=== PATIENT | male | born 1965 | race African-American/Black ===

== ENCOUNTER 2020-12-05 19:43 | Emergency (ER) | payer OTHER ==
[2020-12-05 19:59] VITALS: TEMP 98.4; BMI 40.6
[2020-12-05 20:39] VITALS: BP 131/75; PULSE 90
[2020-12-05] MEDS ORDERED: ACETAMINOPHEN 500 MG TABLET (FP) PO ONE (21:22)
[2020-12-05] MEDS ORDERED: ACETAMINOPHEN 325 MG TABLET (FP) ONE (21:32)
[2020-12-05 22:07] LABS: BASO % 0.7 % (0-2.0); EOS % 1.5 % (0-4.5); HEMATOCRIT 39.8 % (35.4-49); HEMOGLOBIN 13.4 GM/dL (11.7-16.9); LYMPH % 22.4 % (8-40); MCH 27.8 pg (25.7-33.7); MCHC 33.7 g/dl (32.0-35.9); MEAN CELL VOLUME 82.5 fl (80-96); MEAN PLT VOLUME 7.7 fl (7.5-11.1); MONO % 7.9 % (3.8-10.2); NEUT % 67.5 % (42.8-82.8); PLATELET COUNT 337 10^3/uL (134-434); RBC 4.83 M/mm3 (4.00-5.60); RDW 14.1 % (11.9-15.9); WHITE BLOOD COUNT 9.9 K/mm3 (4.0-10.0)
[2020-12-05 22:26] LABS: ALBUMIN 3.6 g/dl (3.4-5.0); BLOOD UREA NITROGEN 12.5 mg/dL (7-18)
[2020-12-05 22:29] LABS: CREATININE 0.9 mg/dL (0.55-1.3)
[2020-12-05 22:31] LABS: TOT PROT 7.7 g/dl (6.4-8.2)
[2020-12-05 22:36] LABS: BILIRUBIN,TOTAL 0.3 mg/dL (0.2-1)
[2020-12-05] MEDS ORDERED: CLINDAMYCIN 600MG PREMIX IVPB 600 MG/50 ML BAG IVPB ONE ×2 (22:56→23:00)
[2020-12-05] MEDS ORDERED: IBUPROFEN 600 MG TABLET (FP) PO ONE ×2 (23:11→23:14)
== END 2020-12-05 23:32 | disposition home or self-care (01) ==
LOC: JER 19:43
DX: L03.116 Cellulitis of left lower limb (principal)
CPT/HCPCS: 36415; 73630-TC-LT; 80053; 85025; 87040; 99284-25

== ENCOUNTER 2020-12-24 10:29 | Emergency (ER) | payer OTHER ==
[2020-12-24 10:56] VITALS: BP 155/85; PULSE 96; TEMP 97.8; BMI 41.3
[2020-12-24] MEDS ORDERED: ACETAMINOPHEN 500 MG TABLET (FP) PO ONE (11:03)
[2020-12-24] MEDS ORDERED: ACETAMINOPHEN 500 MG TABLET (FP) ONE (11:17)
== END 2020-12-24 11:56 | disposition home or self-care (01) ==
LOC: JER 10:29
DX: M79.675 Pain in left toe(s) (principal)
CPT/HCPCS: 99283-25

== ENCOUNTER 2021-09-06 18:17 | Emergency (ER) | payer OTHER ==
[2021-09-06 18:25] VITALS: BP 170/90; PULSE 78; TEMP 98.6; BMI 41.3
[2021-09-06] MEDS ORDERED: SILVER SULFADIAZINE 1% TOP CREAM 50 GM JAR TP ONE ×2 (19:43→19:49)
[2021-09-06] MEDS ORDERED: LORATADINE 10 MG TABLET PO ONE (19:45)
[2021-09-06] MEDS ORDERED: LORATADINE 10 MG TABLET ONE (19:49)
[2021-09-06] MEDS ORDERED: DEXAMETHASONE SOD PHOSPHATE 10 MG/1 ML VIAL ONE (19:50)
[2021-09-06] MEDS ORDERED: DEXAMETHASONE SOD PHOSPHATE 10 MG/1 ML VIAL IM ONE (19:50)
== END 2021-09-06 20:45 | disposition home or self-care (01) ==
LOC: JERFT 18:17 → JER 18:17 → JERFT 20:45
PROC: 3E023GC Introduction of Other Therapeutic Substance into Muscle, Percutaneous Approach (ICD-10-PCS; principal; 2021-09-06)
DX: L23.3 Allergic contact dermatitis due to drugs in contact with skin (principal)
CPT/HCPCS: 99284-25; J1100

== ENCOUNTER 2023-06-21 18:20 | Emergency (ER) | payer OTHER ==
[2023-06-21 18:29] VITALS: BP 160/82; PULSE 89; RESP 18; TEMP 97; BMI 41.3
[2023-06-21] MEDS ORDERED: KETOROLAC TROMETHAMINE 30 MG/1 ML VIAL ONE (19:31)
[2023-06-21] MEDS: SODIUM CHLORIDE 0.9% 500 ML INFUS.BAG IV ONE (19:54)
[2023-06-21] MEDS: KETOROLAC TROMETHAMINE 30 MG/1 ML VIAL IVPUSH ONE (19:54)
[2023-06-21 20:00] LABS: BASO % 0.8 % (0-2.0); EOS % 4.6 % (0-4.5); HEMATOCRIT 41.6 % (35.4-49); HEMOGLOBIN 13.6 GM/dL (11.7-16.9); MCH 27.5 pg (25.7-33.7); MCHC 32.7 g/dl (32.0-35.9); MEAN CELL VOLUME 84.1 fl (80-96); MEAN PLT VOLUME 7.7 fl (7.5-11.1); MONO % 9.6 % (3.8-10.2); PLATELET COUNT 411 10^3/uL (134-434); RBC 4.94 M/mm3 (4.00-5.60); RDW 15.9 % (11.9-15.9); WHITE BLOOD COUNT 8.1 K/mm3 (4.0-10.0)
[2023-06-21 20:01] LABS: EPI CELLS 2 /uL (0-25.1); HYALINE CASTS 0 /uL (0-3.1); PH,URINE 5.5 (5.0-8.0); URINE APPEARANCE CLEAR; URINE BACTERIA 6 /uL (0-1359); URINE BILIRUBIN NEGATIVE (NEGATIVE); URINE COLOR YELLOW; URINE GLUCOSE (UA) NEGATIVE (NEGATIVE); URINE KETONE TRACE (NEGATIVE); URINE LEUK ESTERASE NEGATIVE (NEGATIVE); URINE NITRITE NEGATIVE (NEGATIVE); URINE PROTEIN NEGATIVE (NEGATIVE); URINE RBC 34 /uL (0-23.9); URINE UROBILINOGEN 0.2 mg/dL (0.2-1.0); URINE WBC 8 /uL (0-25.8)
[2023-06-21 20:23] LABS: POTASSIUM 4.2 mmol/L (3.5-5.1)
[2023-06-21 20:26] LABS: ALBUMIN 3.7 g/dl (3.4-5.0); BLOOD UREA NITROGEN 15.3 mg/dL (7-18); CALCIUM 9.4 mg/dL (8.5-10.1)
[2023-06-21 20:29] LABS: CREATININE 0.8 mg/dL (0.55-1.3)
[2023-06-21 20:30] LABS: PHOSPHOROUS 3.7 mg/dL (2.5-4.9)
[2023-06-21 20:31] LABS: BILIRUBIN,TOTAL 0.4 mg/dL (0.2-1); TOT PROT 7.4 g/dl (6.4-8.2)
== END 2023-06-21 21:18 | disposition home or self-care (01) ==
LOC: JER 18:20
PROC: 3E033NZ Introduction of Analgesics, Hypnotics, Sedatives into Peripheral Vein, Percutaneous Approach (ICD-10-PCS; principal; 2023-06-21)
DX: R10.9 Unspecified abdominal pain (principal); R35.0 Frequency of micturition
CPT/HCPCS: 36415; 80053; 81003; 84100; 85025; 87086; 99284-25